=== PATIENT | male | born 1985 | race Caucasian/White ===

== ENCOUNTER 2019-02-10 16:07 | Emergency (ER) | payer SELFPAY ==
--- NOTE | 2019-02-10 16:33 | ED ---
Adult Trauma - HPI Summary HPI Summary: This patient is a 33 year old male presenting to [facility] with a chief complaint of left shoulder pain after a fall. 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 He states he was trying to slide a package from the loading dock and the [employer] truck when he fell between the dock and truck while holding onto the package. He states he has had 2 previous shoulder dislocations. He states he has never been on anaesthesia before. He rates his pain 10/10 in severity. Pt denies any fever, chills, erythema of eyes, sore throat, CP, SOB, cough, abdominal pain, N/V, dysuria, hematuria, myalgia, edema , rash, or dizziness. - History of Current Complaint Chief Complaint: EDExtremityUpper Stated Complaint: L SHOULDER PAIN PER EMS Time Seen by Provider: 02/10/19 16:14 Hx Obtained From: Patient Mechanism of Injury: Fall Onset/Duration: Started Hours Ago Pain Intensity: 10 Pain Scale Used: 0-10 Numeric - Allergy/Home Medications Allergies/Adverse Reactions: Allergies Allergy/AdvReac Type Severity Reaction Status Date / Time No Known Allergies Allergy Verified 02/10/19 16:14 Home Medications: Home Medications Multivitamin 1 tab PO DAILY 02/10/19 [History Confirmed 02/10/19] PMH/Surg Hx/FS Hx/Imm Hx Endocrine/Hematology History: Denies: Hx Diabetes Cardiovascular History: Denies: Hx Coronary Artery Disease - Immunization History Immunizations Up to Date: Yes Infectious Disease History: No Infectious Disease History: Denies: Traveled Outside the [place] in Last 30 Days - Social History Alcohol Use: None Substance Use Type: Reports: None Smoking Status (MU): Former Smoker Review of Systems Negative: Fever, Chills Negative: Erythema Negative: Sore Throat Negative: Chest Pain Negative: Shortness Of Breath, Cough Negative: Abdominal Pain, Vomiting, Nausea Negative: dysuria, hematuria Positive: Other - Left shoulder pain. Negative: Myalgia, Edema Negative: Rash Neurological: Other - Neg: Dizziness All Other Systems Reviewed And Are Negative: No Physical Exam - Summary Physical Exam Summary: Constitutional: Well-developed, Well-nourished, Alert, Cooperative Skin: Warm, Dry HENT: Normocephalic; No Racoons eyes; No pederson's sign; No abrasion; No contusion; No hemotympanum; No maxilla facial tenderness or instability; Dentition are smooth; No dental trauma; No trismus Eyes: EOM normal, PERRL Neck: Trachea is midline. No stridor; No JVD; No step off; No posterior cervical spine tenderness Cardio: Rhythm regular, rate normal Heart sounds normal; Intact distal pulses. Radial pulses are 2+ and symmetric. Pulmonary/Chest wall: Effort normal; Breath sounds normal; Equal chest rise; No flail segment; No rib tenderness; No sternal tenderness Abd: Soft, Appearance normal. No distension; No tenderness; No palpable pulsatile mass; No Cullens sign; No Alfred-Turners sign Musculoskeletal: Full ROM and no tenderness at hips, ankles, shoulders, elbows and knees; No joint swelling; No vertebral body tenderness; No paraspinal tenderness; No step off or deformity of the spine; Pelvis is stable to lateral compression and rock Neuro: Alert, Oriented x3, Strength 5/5 all extremities. : No blood at urethral meatus Psych: Mood and affect Normal Triage Information Reviewed: Yes Vital Signs On Initial Exam: Initial Vitals Temp Pulse Resp BP Pulse Ox 98.1 F 89 20 147/100 96 02/10/19 16:10 02/10/19 16:10 02/10/19 16:10 02/10/19 16:10 02/10/19 16:10 Vital Signs Reviewed: Yes Procedures - Sedation Patient Received Moderate/Deep Sedation with Procedure: Yes Are You The Provider Who Administered The Sedation: Yes - Procedural Sedation/Analgesia Sedation Course: RT Present, Emergency Airway Equipment Available, Informed Consent Obtained, Time Out Completed, End-tidal Capnography Utilized Adverse Reactions Experienced by Patient: None Mallampati Classification: Class I ASA Classification: Class I: Normal/Healthy Pre-Procedural Heart: S1 and S2 Pre-Procedural Lungs: Clear Auscultation Comment/Plan of Care: Left Shoulder Dislocation Reduction Provider Procedure Attestation: With My Signature Below, I Attest to have Personally Reviewed and Agree with the Pre-Sedation History and Pre-Service Assessment Update Cleared for Moderate Sedation: Yes Pre-Procedural Diagnosis: Left Shoulder Dislocation Post-Procedural Diagnosis: Left Shoulder Dislocation Procedure: Left Shoulder Joint Reduction. Tolerated well, performed by [place] Ruiz. Estimated Blood Loss: None Specimen(s): None Findings: None Implants/Tubes/Drains Placed: None - Joint Reduction Left Joint Reduction Site: shoulder (L) Conscious Sedation: Yes - Propofol Reduction Attempts: 1 Pre-Procedure NV Exam: Yes Post Joint Reduction Film: joint reduced Diagnostics - Vital Signs Vital Signs Temp Pulse Resp BP Pulse Ox 02/10/19 16:10 98.1 F 89 20 147/100 96 - Laboratory Lab Statement: Any lab studies that have been ordered have been reviewed, and results considered in the medical decision making process. - Radiology Shoulder XR Left Radiology Interpretation Completed By: Radiologist Summary of Radiographic Findings: Suspected anterior shoulder dislocation with a hill-sachs deformity. ED Provider has reviewed this report. Post reduction left shoulder XR Radiology Interpretation Completed By: ED Physician Summary of Radiographic Findings: Successful reduction no fractures. Pending official radiologist report. Re-Evaluation - Re-Evaluation First Eval Re-Evaluation Time: 18:09 Comment: Still complaining of a lot of pain in his shoulder. Adult Trauma Course/Dx - Course Course Of Treatment: This patient is a 33 year old male presenting to [facility] with a chief complaint of left shoulder pain after a fall. Left shoulder XR reveals Suspected anterior shoulder dislocation with a hill-sachs deformity. Reduction performed by IND[place]NA Mendoza. 100 mg propofol given for conscious procedural sedation by the ED Provider. XR verified successful reduction of the joint. A plan for discharge was discussed with the patient and he was agreeable with this plan. - Diagnoses Provider Diagnoses: Dislocation of left shoulder joint Discharge ED - Sign-Out/Discharge Documenting (check all that apply): Patient Departure - Discharge - Discharge Plan Condition: Stable Disposition: HOME Patient Education Materials: Shoulder Dislocation (ED), Procedural Sedation (ED ) Referrals: [facility] Orthopedic Services [Provider Group] - 2 Days Additional Instructions: Follow up with Orthopedics in 2-3 days. - Billing Disposition and Condition Condition: STABLE Disposition: Home - Attestation Statements Document Initiated by Scribe: Yes Documenting Scribe: Mika Guzman Provider For Whom Madhu is Documenting (Include Credential): Corwin Jimenez MD Scribe Attestation: Mika Hahn, scribed for Corwin Jimenez MD on 02/12/19 at 1029. Scribe Documentation Reviewed: Yes Provider Attestation: The documentation as recorded by the Mika jung accurately reflects the service I personally performed and the decisions made by me, Corwin Jimenez MD Status of Scribe Document: Viewed ED Procedures - Procedure Summary Procedure Summary: Indication: anterior dislocation of left shoulder without fracture Deputy Chief Executive: Chidi Mendoza, physician assistant service manager Indications, risks, and benefits explained to patient and informed consent obtained. Radiographs were obtained showing dislocation. Pre procedure, patient had intact motor & sensation of median, radial and ulnar nerves, with intact sensation of axillary nerve. Joint was reduced with propofol sedation performed by emergency physician Dr. Jimenez Post procedure, patient had intact motor & sensation of median, radial and ulnar nerves, with intact sensation of axillary nerve. Patient was placed in a sling, and instructed to follow up. - Joint Reduction Left Joint Reduction Site: shoulder (L) Conscious Sedation: Yes - Propofol Reduction Attempts: 1 Pre-Procedure NV Exam: Yes Post Joint Reduction Film: joint reduced
[2019-02-10] MEDS: NS 0.9% 1000 ML** 1,000 ML IV ONE (17:12)
[2019-02-10] MEDS: Propofol* 10 MG/ML 20 ML BTL IV PUSH ONE (18:01)
[2019-02-10] MEDS: Ketorolac INJ* 30 MG/ML 1 ML VIAL IV PUSH ONE (18:17)
[2019-02-10 19:25] VITALS: BP 119/92
== END 2019-02-10 20:12 | disposition home or self-care (01) ==
LOC: ED 16:07
DX: S43.005A Unspecified dislocation of left shoulder joint, initial encounter (principal); S42.292A Other displaced fracture of upper end of left humerus, initial encounter for closed fracture; W17.89XA Other fall from one level to another, initial encounter; Y92.89 Other specified places as the place of occurrence of the external cause; Y99.0 Civilian activity done for income or pay; Z87.891 Personal history of nicotine dependence
CPT/HCPCS: 23655; 96374; 96375; 99285; J1885; J2704